=== PATIENT | female | born 1990 | race Two or more races ===

== ENCOUNTER → 2018-04-25 | Outpatient (CLI) | payer MEDICAID ==
[2018-04-25 13:17] LABS: Cholesterol 178 mg/dL (< 200); HDL Cholesterol 38 mg/dL (40-59); LDL Cholesterol 130 mg/dL (< 100); Triglycerides 154 mg/dL (< 150)
[2018-04-25 13:23] LABS: Thyroid Stimulating Hormone 1.72 uIU/mL (0.358-3.74)
[2018-04-25 13:24] LABS: Beta HCG, Quantitative < 1 mlU/mL (1-3)
[2018-04-25 13:36] LABS: Prolactin 16.05 ng/mL (2.8-29.2)
[2018-04-25 13:37] LABS: Follicle Stimulating Hormone 5.43 IU/L (SEE BELOW); Leuteinizing Hormone 7.7 IU/L
== END | disposition home or self-care (01) ==
LOC: LAB 11:57
PROVIDERS: ATTEND Specialist
DX: N91.2 Amenorrhea, unspecified (principal)
CPT/HCPCS: 36415; 80061; 83001; 83002; 83525; 84146; 84403; 84443; 84702

== ENCOUNTER 2022-09-15 09:15 | Emergency (ER) | payer MEDICAID ==
[~2022-09-15] VITALS: Ht 160 cm; Wt 74.5 kg
[2022-09-15 10:03] LABS: Urine Bacteria NONE SEEN /hpf (None Seen); Urine Blood TRACE /uL (Negative); Urine Specific Gravity 1.015 (1.001-1.035); Urine WBC 2 /hpf (0 - 5)
[2022-09-15 10:31] LABS: Basophils # (auto) 0.1 10 ^3/uL (0-0.2); Basophils % (auto) 0.4 % (0.0-2.0); Eosinophils # (auto) 0.1 10 ^3/uL (0-0.8); Eosinophils % (auto) 0.7 % (0.0-7.0); Hematocrit 41.8 % (36.0-46.0); Hemoglobin 13.8 g/dL (12.2-16.2); Lymphocytes # (auto) 2.2 10 ^3/uL (0.4-5.4); Lymphocytes % (auto) 18.5 % (10.0-50.0); Mean Corpuscular Hemoglobin 29.2 pg (28.0-32.0); Mean Corpuscular Hgb Conc. 33.2 g/dL (32.0-36.0); Mean Corpuscular Volume 88.1 fL (80.0-100.0); Monocytes # (auto) 0.8 10 ^3/uL (0-1.3); Monocytes % (auto) 6.3 % (0.0-12.0); Neutrophils # (auto) 8.8 10 ^3/uL (1.6-8.6); Neutrophils % (auto) 74.1 % (37.0-80.0); Red Blood Cells 4.74 10^6/uL (4.0-5.20); Red Cell Distribution Width 13.7 % (11.8-14.3); White Blood Cell 11.9 10^3/uL (4.4-10.8)
[2022-09-15 10:55] LABS: Albumin 3.7 g/dL (3.4-5.0); Calcium 8.4 mg/dL (8.5-10.1); Potassium 3.8 mmol/L (3.5-5.1)
[2022-09-15 11:00] LABS: BUN/Creatinine Ratio 21.2; Bilirubin, Total 0.5 mg/dL (0.2-1.0); Total Protein 7.6 g/dL (6.4-8.2)
[2022-09-15 16:12] VITALS: BP 128/74
[2022-09-15] MEDS ORDERED: KETOROLAC TROMETH 30 MG/ML 1ML VIAL IM ONE (16:15)
== END 2022-09-15 16:33 | disposition home or self-care (01) ==
LOC: ER 09:15
DX: R10.2 Pelvic and perineal pain (principal)
CPT/HCPCS: 36415; 74176; 76830; 76856; 80053; 81001; 81025; 84702; 85025